=== PATIENT | male | born 1940 | race Caucasian/White ===

== ENCOUNTER 2016-03-17 10:12 | Inpatient (IN) | payer BC ==
[~2016-03-17] VITALS: Ht 175.3 cm; Wt 95.5 kg
[~2016-03-17 10:12] MED LIST: AML5T PO; ASP81EC PO; Atorvastatin Calcium PO; LIS20T PO; LISI-646 PO; METF500T PO
[2016-03-17 11:33] LABS: Basophils # (auto) 0.1 uL; DEFINITIVE VIEW TRANSMISSION; Eosinophils # (auto) 0.2 uL; Eosinophils % (auto) 3.8 % (0.0-7.0); Hematocrit 46.8 % (41.0-53.0); Hemoglobin 14.9 g/dL (13.5-17.5); Lymphocytes # (auto) 1.1 uL; Mean Corpuscular Hemoglobin 26.9 pg (28.0-32.0); Mean Corpuscular Hgb Conc. 31.7 g/dL (32.0-36.0); Mean Corpuscular Volume 84.7 fL (80.0-100.0); Mean Platelet Volume 8.8 fL (7.4-10.4); Monocytes # (auto) 0.7 uL; Monocytes % (auto) 10.3 % (0.0-12.0); Neutrophils # (auto) 4.3 uL; Neutrophils % (auto) 67.7 % (37.0-80.0); Platelet Count (auto) 216 10^3/uL (140-450); White Blood Cell 6.4 10^3/uL (4.4-10.8)
[2016-03-17 11:46] LABS: Basophils % (auto) 0.2 % (0.0-2.0)
[2016-03-17 11:59] LABS: Albumin 3.1 g/dL (3.4-5.0); Calcium 8.7 mg/dL (8.5-10.1); Potassium 4.5 mmol/L (3.5-5.1)
[2016-03-17 12:00] LABS: Partial Thromboplastin Time 31.1 sec (22.64-33.71)
[2016-03-17 12:02] LABS: BUN/Creatinine Ratio 24.4
[2016-03-17 12:04] LABS: Bilirubin, Total 1.1 mg/dL (0.2-1.0); Total Protein 6.8 g/dL (6.4-8.2)
[2016-03-17 12:19] LABS: INR 1.17 (0.9-1.15)
[2016-03-17] MEDS ORDERED: SODIUM CHLORIDE 0.9% 1,000 ML IV ONE (12:50)
[2016-03-17] MEDS ORDERED: PIPERACILLIN-TAZOB 3.375GM 100 ML IV ONE (13:00)
[2016-03-17] MEDS ORDERED: VANCOMYCIN 1GM/250ML D5W 250 ML IV ONE (15:15)
[2016-03-17] MEDS ORDERED: TEMAZEPAM 15 MG CAP PO PRN (15:30)
[2016-03-17] MEDS ORDERED: ACETAMINOPHEN 500 MG TAB PO PRN (15:30)
[2016-03-17] MEDS ORDERED: VANCOMYCIN PER PHARMACY 0 MG IV SCH (15:30)
[2016-03-17] MEDS ORDERED: HYDROcodone-ACET 5/325MG TAB PO PRN (15:30)
[2016-03-17] MEDS ORDERED: MORPHINE SULF INJ 2 MG/ML SYRINGE 1ML IV PRN (15:30)
[2016-03-17] MEDS ORDERED: LACTULOSE 20Gm/30ML SOLN PO PRN (15:30)
[2016-03-17] MEDS ORDERED: DEXTROSE (50%) 50ML SYRG IV PRN (15:30)
[2016-03-17] MEDS ORDERED: LABETALOL HCL 5 MG/ML 4ML SYRINGE IV ONE (15:30)
[2016-03-17] MEDS ORDERED: LORazepam 0.5 MG TAB PO PRN (15:30)
[2016-03-17] MEDS ORDERED: NITROGLYCERIN 0.4 MG SL TAB SL PRN (15:30)
[2016-03-17] MEDS ORDERED: PROMETHAZINE HCL 25 MG/ML 1ML IV PRN (15:30)
[2016-03-17] MEDS: SODIUM CHLORIDE 0.9% 1,000 ML IV SCH (17:50)
[2016-03-17] MEDS: ACCU-CHEK COMFORT CURVE STRIP VI SCH ×2 (17:50→22:31)
[2016-03-17 17:52] VITALS: BP 160/78
[2016-03-17] MEDS: InsuLIN REG 1unit/0.01ml Soln (100units/ml) SC SCH ×2 (18:12→22:32)
[2016-03-17] MEDS ORDERED: amLODIPine BESYLATE 5 MG TAB PO ONE (20:15)
[2016-03-17] MEDS ORDERED: LISINOPRIL 20 MG TAB PO ONE (20:15)
[2016-03-17] MEDS ORDERED: ASPirin-EC 81 mg tab PO ONE (20:15)
[2016-03-17 22:00] VITALS: BP 142/82
[2016-03-17] MEDS: ATORVASTATIN 20 MG TAB PO SCH (22:31)
[2016-03-18] MEDS: SODIUM CHLORIDE 0.9% 1,000 ML IV SCH ×3 (01:46→21:16)
[2016-03-18 05:30] VITALS: BP 163/94
[2016-03-18] MEDS: InsuLIN REG 1unit/0.01ml Soln (100units/ml) SC SCH ×4 (06:30→22:00)
[2016-03-18] MEDS: ACCU-CHEK COMFORT CURVE STRIP VI SCH ×4 (06:30→22:00)
[2016-03-18 06:51] LABS: Basophils # (auto) 0 uL; Basophils % (auto) 0.5 % (0.0-2.0); Eosinophils # (auto) 0.3 uL; Hematocrit 40.3 % (41.0-53.0); Hemoglobin 13.3 g/dL (13.5-17.5); Lymphocytes # (auto) 1.1 uL; Lymphocytes % (auto) 22.9 % (10.0-50.0); Mean Corpuscular Hemoglobin 30.3 pg (28.0-32.0); Mean Corpuscular Hgb Conc. 33.1 g/dL (32.0-36.0); Mean Corpuscular Volume 91.5 fL (80.0-100.0); Monocytes # (auto) 0.6 uL; Monocytes % (auto) 12.4 % (0.0-12.0); Neutrophils # (auto) 2.8 uL; Neutrophils % (auto) 58.2 % (37.0-80.0); Platelet Count (auto) 172 10^3/uL (140-450); White Blood Cell 4.8 10^3/uL (4.4-10.8)
[2016-03-18 07:12] LABS: Albumin 2.9 g/dL (3.4-5.0); BUN/Creatinine Ratio 28.7; Bilirubin, Total 1.1 mg/dL (0.2-1.0); Calcium 8.4 mg/dL (8.5-10.1); Potassium 4.1 mmol/L (3.5-5.1); Total Protein 6.3 g/dL (6.4-8.2)
[2016-03-18 09:25] VITALS: BP 158/86
[2016-03-18] MEDS: LEVOFLOXACIN 500MG 100 ML IV SCH (10:05)
[2016-03-18] MEDS: ENOXAPARIN SOD 40 MG/0.4 ML SYRINGE SC SCH (10:06)
[2016-03-18] MEDS: LISINOPRIL 20 MG TAB PO SCH (10:08)
[2016-03-18] MEDS: ASPirin-EC 81 mg tab PO SCH (10:08)
[2016-03-18] MEDS: amLODIPine BESYLATE 5 MG TAB PO SCH (10:10)
[2016-03-18 13:00] VITALS: BP 169/86
[2016-03-18] MEDS: VANCOMYCIN 1,250 MG in D5W 5% 250 ML IV SCH (13:00)
[2016-03-18 17:00] VITALS: BP 140/82
[2016-03-18 21:27] VITALS: BP 144/74
[2016-03-18] MEDS: ATORVASTATIN 20 MG TAB PO SCH (22:00)
[2016-03-19] MEDS: VANCOMYCIN 1,250 MG in D5W 5% 250 ML IV SCH ×2 (04:16→23:50)
[2016-03-19 05:00] VITALS: BP 166/98
[2016-03-19] MEDS: ACCU-CHEK COMFORT CURVE STRIP VI SCH ×4 (05:57→22:00)
[2016-03-19] MEDS: SODIUM CHLORIDE 0.9% 1,000 ML IV SCH (05:57)
[2016-03-19] MEDS: InsuLIN REG 1unit/0.01ml Soln (100units/ml) SC SCH ×4 (06:01→22:00)
[2016-03-19 09:00] VITALS: BP 170/90
[2016-03-19] MEDS: ASPirin-EC 81 mg tab PO SCH (09:33)
[2016-03-19] MEDS: amLODIPine BESYLATE 5 MG TAB PO SCH (09:34)
[2016-03-19] MEDS: ENOXAPARIN SOD 40 MG/0.4 ML SYRINGE SC SCH (09:34)
[2016-03-19] MEDS: LISINOPRIL 20 MG TAB PO SCH (09:34)
[2016-03-19] MEDS: LEVOFLOXACIN 500MG 100 ML IV SCH (09:35)
[2016-03-19] MEDS ORDERED: FUROSEMIDE 40 MG/4 ML VIAL IV ONE (12:45)
[2016-03-19 13:00] VITALS: BP 154/79
[2016-03-19 16:42] VITALS: BP 187/85
[2016-03-19 22:02] VITALS: BP 115/75
[2016-03-19 22:13] VITALS: BP 135/76
[2016-03-19] MEDS: ATORVASTATIN 20 MG TAB PO SCH (22:48)
[2016-03-20 05:28] LABS: Basophils # (auto) 0 uL; Basophils % (auto) 0.7 % (0.0-2.0); Eosinophils # (auto) 0.3 uL; Eosinophils % (auto) 6.3 % (0.0-7.0); Hematocrit 42.8 % (41.0-53.0); Hemoglobin 13.6 g/dL (13.5-17.5); Lymphocytes % (auto) 19.8 % (10.0-50.0); Mean Corpuscular Hemoglobin 27.1 pg (28.0-32.0); Mean Corpuscular Hgb Conc. 31.9 g/dL (32.0-36.0); Mean Corpuscular Volume 85.2 fL (80.0-100.0); Mean Platelet Volume 8.7 fL (7.4-10.4); Monocytes # (auto) 0.5 uL; Monocytes % (auto) 9.8 % (0.0-12.0); Neutrophils # (auto) 3.2 uL; Neutrophils % (auto) 63.4 % (37.0-80.0); Platelet Count (auto) 179 10^3/uL (140-450); Red Cell Distribution Width 15.2 % (11.6-16.0); White Blood Cell 5.1 10^3/uL (4.4-10.8)
[2016-03-20 05:42] VITALS: BP 178/97
[2016-03-20 05:53] LABS: BUN/Creatinine Ratio 20.7; Calcium 8.6 mg/dL (8.5-10.1)
[2016-03-20] MEDS: ACCU-CHEK COMFORT CURVE STRIP VI SCH ×4 (06:31→22:26)
[2016-03-20] MEDS: InsuLIN REG 1unit/0.01ml Soln (100units/ml) SC SCH ×4 (07:00→22:28)
[2016-03-20 09:00] VITALS: BP_SYST 128; BP_SYST 174; BP_DIAS 79; BP_DIAS 81
[2016-03-20] MEDS: amLODIPine BESYLATE 5 MG TAB PO SCH (09:19)
[2016-03-20] MEDS: ENOXAPARIN SOD 40 MG/0.4 ML SYRINGE SC SCH (09:19)
[2016-03-20] MEDS: ASPirin-EC 81 mg tab PO SCH (09:19)
[2016-03-20] MEDS: LEVOFLOXACIN 500MG 100 ML IV SCH (09:20)
[2016-03-20] MEDS: LISINOPRIL 20 MG TAB PO SCH (09:20)
[2016-03-20] MEDS: MORPHINE SULF INJ 2 MG/ML SYRINGE 1ML IV PRN (10:35)
[2016-03-20 13:00] VITALS: BP 145/71
[2016-03-20] MEDS ORDERED: FUROSEMIDE 40 MG/4 ML VIAL IV ONE (14:00)
[2016-03-20] MEDS ORDERED: CARVEDILOL 3.125 MG TAB PO ONE (14:00)
[2016-03-20 15:16] LABS: Urine Bilirubin Negative (Negative); Urine Blood Negative /uL (Negative); Urine Color Yellow (Yellow); Urine Glucose TRACE mg/dL (Normal); Urine Hyaline Cast FEW /lpf (0 - 2); Urine Ketone Negative (Negative); Urine Nitrite Negative (Negative); Urine RBC 2 /hpf (0 - 3); Urine Squamous Epithelial Cell FEW /hpf (<5); Urine Urobilinogen Normal (Negative)
[2016-03-20] MEDS: VANCOMYCIN 1,250 MG in D5W 5% 250 ML IV SCH (15:46)
[2016-03-20 17:00] VITALS: BP 149/99
[2016-03-20 22:00] VITALS: BP 136/80
[2016-03-20] MEDS: ATORVASTATIN 20 MG TAB PO SCH (22:22)
[2016-03-20] MEDS: CARVEDILOL 3.125 MG TAB PO SCH (22:22)
[2016-03-21 05:30] VITALS: BP 163/84
[2016-03-21 06:13] LABS: BUN/Creatinine Ratio 19.4; Calcium 8.6 mg/dL (8.5-10.1); Potassium 4.2 mmol/L (3.5-5.1)
[2016-03-21] MEDS: ACCU-CHEK COMFORT CURVE STRIP VI SCH ×4 (07:09→22:27)
[2016-03-21] MEDS: InsuLIN REG 1unit/0.01ml Soln (100units/ml) SC SCH ×3 (07:13→16:48)
[2016-03-21 09:00] VITALS: BP 167/83
[2016-03-21] MEDS: FUROSEMIDE 40 MG/4 ML VIAL IV SCH (09:45)
[2016-03-21] MEDS: LISINOPRIL 20 MG TAB PO SCH (09:46)
[2016-03-21] MEDS: ASPirin-EC 81 mg tab PO SCH (09:46)
[2016-03-21] MEDS: CARVEDILOL 3.125 MG TAB PO SCH ×2 (09:46→22:12)
[2016-03-21] MEDS: ENOXAPARIN SOD 40 MG/0.4 ML SYRINGE SC SCH (09:46)
[2016-03-21] MEDS: LEVOFLOXACIN 500MG 100 ML IV SCH (09:46)
[2016-03-21] MEDS: MORPHINE SULF INJ 2 MG/ML SYRINGE 1ML IV PRN (09:47)
[2016-03-21] MEDS: VANCOMYCIN 1,250 MG in D5W 5% 250 ML IV SCH (10:59)
[2016-03-21] MEDS ORDERED: DEXTROSE (50%) 50ML SYRG IV PRN (12:00)
[2016-03-21 13:00] VITALS: BP 148/93
[2016-03-21 17:00] VITALS: BP 109/54
[2016-03-21] MEDS ORDERED: InsuLIN REG 1unit/0.01ml Soln (100units/ml) SC SCH (22:00)
[2016-03-21] MEDS: ATORVASTATIN 20 MG TAB PO SCH (22:11)
[2016-03-21 22:32] VITALS: BP 150/75
[2016-03-22] MEDS: VANCOMYCIN 1,250 MG in D5W 5% 250 ML IV SCH (04:03)
[2016-03-22 05:12] VITALS: BP 157/76
[2016-03-22 06:06] LABS: Basophils # (auto) 0 uL; Basophils % (auto) 0.6 % (0.0-2.0); Eosinophils # (auto) 0.3 uL; Eosinophils % (auto) 6.8 % (0.0-7.0); Hematocrit 38.8 % (41.0-53.0); Hemoglobin 12.6 g/dL (13.5-17.5); Lymphocytes # (auto) 0.8 uL; Lymphocytes % (auto) 18.1 % (10.0-50.0); Mean Corpuscular Hemoglobin 28.9 pg (28.0-32.0); Mean Corpuscular Hgb Conc. 32.4 g/dL (32.0-36.0); Mean Corpuscular Volume 89.3 fL (80.0-100.0); Mean Platelet Volume 8.8 fL (7.4-10.4); Monocytes # (auto) 0.5 uL; Monocytes % (auto) 10.6 % (0.0-12.0); Neutrophils # (auto) 2.8 uL; Neutrophils % (auto) 63.9 % (37.0-80.0); Platelet Count (auto) 170 10^3/uL (140-450); Red Cell Distribution Width 14.9 % (11.6-16.0); White Blood Cell 4.5 10^3/uL (4.4-10.8)
[2016-03-22 06:15] LABS: BUN/Creatinine Ratio 20.5; Calcium 8.5 mg/dL (8.5-10.1); Potassium 4.2 mmol/L (3.5-5.1)
[2016-03-22] MEDS: ACCU-CHEK COMFORT CURVE STRIP VI SCH ×2 (06:28→11:03)
[2016-03-22] MEDS: InsuLIN REG 1unit/0.01ml Soln (100units/ml) SC SCH ×2 (06:28→11:03)
[2016-03-22] MEDS: LEVOFLOXACIN 500MG 100 ML IV SCH (09:06)
[2016-03-22] MEDS: ASPirin-EC 81 mg tab PO SCH (09:07)
[2016-03-22] MEDS: LISINOPRIL 20 MG TAB PO SCH (09:07)
[2016-03-22] MEDS: CARVEDILOL 3.125 MG TAB PO SCH (09:07)
[2016-03-22] MEDS: FUROSEMIDE 40 MG/4 ML VIAL IV SCH (09:07)
[2016-03-22] MEDS: ENOXAPARIN SOD 40 MG/0.4 ML SYRINGE SC SCH (09:08)
[2016-03-22 13:45] VITALS: BP 113/77
== END 2016-03-22 13:45 | disposition home or self-care (01) | DRG 292 ==
LOC: ER 10:26 → TELE 10:27 → TELE-E-ADS 16:46 → TELE-WESTW 17:35 → WEST WING 03-18 15:40
PROVIDERS: ADMIT Internal Medicine; ATTEND Family Medicine
DX: I11.0 Hypertensive heart disease with heart failure (principal); L03.115 Cellulitis of right lower limb; E44.1 Mild protein-calorie malnutrition; L03.116 Cellulitis of left lower limb; I50.21 Acute systolic (congestive) heart failure; M71.22 Synovial cyst of popliteal space [Baker], left knee; E78.5 Hyperlipidemia, unspecified; E11.42 Type 2 diabetes mellitus with diabetic polyneuropathy; E66.9 Obesity, unspecified; Z68.31 Body mass index [BMI] 31.0-31.9, adult; Z83.3 Family history of diabetes mellitus; Z82.49 Family history of ischemic heart disease and other diseases of the circulatory system; Z88.0 Allergy status to penicillin; Z79.84 Long term (current) use of oral hypoglycemic drugs; Z79.82 Long term (current) use of aspirin; E11.51 Type 2 diabetes mellitus with diabetic peripheral angiopathy without gangrene; E11.622 Type 2 diabetes mellitus with other skin ulcer; I35.0 Nonrheumatic aortic (valve) stenosis; L98.499 Non-pressure chronic ulcer of skin of other sites with unspecified severity; Z85.048 Personal history of other malignant neoplasm of rectum, rectosigmoid junction, and anus; Z93.3 Colostomy status; Z80.9 Family history of malignant neoplasm, unspecified; Z89.421 Acquired absence of other right toe(s)
CPT/HCPCS: 36415; 71020; 80048; 80053; 80061; 80202; 81001; 82962; 83036; 83735; 84443; 85025; 85049; 85610; 85652; 85730; 87040; 87205; 93005; 93306; 93970; 94761; 96361; 96365; 96375; J1815; J1956; J2543; J3490; J7060

== ENCOUNTER 2016-12-02 11:02 | Inpatient (IN) | payer BC ==
[~2016-12-02] VITALS: Ht 175.3 cm; Wt 81.6 kg
[2016-12-02 11:43] LABS: Hematocrit 35.9 % (41.0-53.0); Hemoglobin 12.3 g/dL (13.5-17.5); Mean Corpuscular Hemoglobin 29.8 pg (28.0-32.0); Mean Corpuscular Hgb Conc. 34.2 g/dL (32.0-36.0); Mean Platelet Volume 8.2 fL (6.9-10.8); Platelet Count (auto) 234 10^3/uL (140-450); Red Cell Distribution Width 14.7 % (11.8-14.3); White Blood Cell 12.5 10^3/uL (4.4-10.8)
[2016-12-02 11:45] LABS: Metamyelocytes % 0; Myelocytes % 0; Promyelocytes % 0; Reactive Lymphocytes 0
[2016-12-02] MEDS ORDERED: SODIUM CHLORIDE 0.9% 1,000 ML IV ONE ×4 (12:06→15:30)
[2016-12-02 12:10] LABS: Albumin 2.7 g/dL (3.4-5.0); BUN/Creatinine Ratio 33.5; Bilirubin, Total 0.9 mg/dL (0.2-1.0); Calcium 8.7 mg/dL (8.5-10.1); Potassium 4.1 mmol/L (3.5-5.1); Total Protein 7.4 g/dL (6.4-8.2)
[2016-12-02] MEDS ORDERED: CLINDAMYCIN 900MG IV 50 ML IV ONE (12:15)
[2016-12-02] MEDS ORDERED: cefTRIAXone 1GM/50ML D5W 50 ML IV ONE ×2 (12:15→14:45)
[2016-12-02 12:33] LABS: INR 1.1 (0.9-1.15); Partial Thromboplastin Time 27.4 sec (22.64-33.71)
[2016-12-02] MEDS ORDERED: HEPARIN SODIUM (PORCINE) 5000 UNITS/ML 1ML VIAL IV ONE (13:15)
[2016-12-02 13:16] LABS: Ovalocytes FEW; Platelet Estimate Adequate
[2016-12-02 13:44] LABS: Lactic Acid w/Reflex 3.7 mmol/L (0.4-2.0)
[2016-12-02 13:45] LABS: REFLEX LACTIC ACID YES OR NO YES
[2016-12-02] MEDS ORDERED: HEPARIN DRIP/D5W 100UNITS/ML 250 ML IV SCH ×3 (14:19→15:45)
[2016-12-02] MEDS ORDERED: SODIUM CHLORIDE 0.9% 1,000 ML IV SCH ×3 (14:19→20:15)
[2016-12-02] MEDS ORDERED: TEMAZEPAM 15 MG CAP PO PRN (14:30)
[2016-12-02] MEDS ORDERED: PROMETHAZINE HCL 25 MG/ML 1ML IV PRN (14:30)
[2016-12-02] MEDS ORDERED: LACTULOSE 20Gm/30ML SOLN PO PRN (14:30)
[2016-12-02] MEDS ORDERED: HYDROcodone-ACET 5/325MG TAB PO PRN (14:30)
[2016-12-02] MEDS ORDERED: DEXTROSE (50%) 50ML SYRG IV PRN (14:30)
[2016-12-02] MEDS ORDERED: NITROGLYCERIN 0.4 MG SL TAB SL PRN (14:30)
[2016-12-02] MEDS ORDERED: MORPHINE SULF INJ 2 MG/ML SYRINGE 1ML IV PRN ×2 (14:30)
[2016-12-02] MEDS ORDERED: ACETAMINOPHEN 500 MG TAB PO PRN (14:30)
[2016-12-02] MEDS ORDERED: ASPirin 81 mg TAB PO ONE ×2 (14:30→14:45)
[2016-12-02] MEDS ORDERED: LORazepam 0.5 MG TAB PO PRN (14:30)
[2016-12-02] MEDS ORDERED: PANTOPRAZOLE 40 MG TAB PO ONE (14:45)
[2016-12-02] MEDS ORDERED: NITROGLYCERIN 0.2MG/HR TOPICAL PATCH TD ONE (14:45)
[2016-12-02] MEDS ORDERED: CLINDAMYCIN 600MG IV 50 ML IV ONE (14:45)
[2016-12-02] MEDS ORDERED: InsuLIN REG 1unit/0.01ml Soln (100units/ml) SC SCH (16:00)
[2016-12-02] MEDS ORDERED: ACCU-CHEK COMFORT CURVE STRIP VI SCH (16:00)
[2016-12-02 16:28] LABS: Urine Bilirubin Negative (Negative); Urine Blood Negative /uL (Negative); Urine Color Yellow (Yellow); Urine Glucose Normal (Normal); Urine Hyaline Cast FEW /lpf (0 - 2); Urine Ketone Negative (Negative); Urine Mucus FEW (None Seen); Urine Nitrite Negative (Negative); Urine RBC 1 /hpf (0 - 3); Urine Urobilinogen Normal (Negative)
[2016-12-02 17:38] LABS: INR 1.16 (0.9-1.15); Partial Thromboplastin Time 38.2 sec (22.64-33.71); Prothrombin Time 12.7 sec (9.37-12.3)
[2016-12-02 17:56] VITALS: BP 127/56
[2016-12-02] MEDS ORDERED: CLINDAMYCIN 600MG IV 50 ML IV SCH (22:00)
[2016-12-03] MEDS ORDERED: cefTRIAXone 1GM/50ML D5W 50 ML IV SCH (09:00)
[2016-12-03] MEDS ORDERED: NITROGLYCERIN 0.2MG/HR TOPICAL PATCH TD SCH (10:00)
[2016-12-03] MEDS ORDERED: ASPirin 81 mg TAB PO SCH (10:00)
[2016-12-03] MEDS ORDERED: PANTOPRAZOLE 40 MG TAB PO SCH (10:00)
== END 2016-12-02 18:24 | disposition short-term general hospital (02) | DRG 871 ==
LOC: ER 11:02 → TELE 11:03
PROVIDERS: ADMIT Internal Medicine; ATTEND Internal Medicine
DX: A41.9 Sepsis, unspecified organism (principal); I21.4 Non-ST elevation (NSTEMI) myocardial infarction; E11.40 Type 2 diabetes mellitus with diabetic neuropathy, unspecified; I42.0 Dilated cardiomyopathy; E11.52 Type 2 diabetes mellitus with diabetic peripheral angiopathy with gangrene; L03.116 Cellulitis of left lower limb; I11.0 Hypertensive heart disease with heart failure; I50.82 Biventricular heart failure; E11.319 Type 2 diabetes mellitus with unspecified diabetic retinopathy without macular edema; E78.5 Hyperlipidemia, unspecified; H54.8 Legal blindness, as defined in USA; M19.90 Unspecified osteoarthritis, unspecified site; I35.0 Nonrheumatic aortic (valve) stenosis; E66.9 Obesity, unspecified; I25.10 Atherosclerotic heart disease of native coronary artery without angina pectoris; M71.22 Synovial cyst of popliteal space [Baker], left knee; Z68.26 Body mass index [BMI] 26.0-26.9, adult; Z83.3 Family history of diabetes mellitus; Z82.49 Family history of ischemic heart disease and other diseases of the circulatory system; Z85.048 Personal history of other malignant neoplasm of rectum, rectosigmoid junction, and anus; Z93.3 Colostomy status; Z88.0 Allergy status to penicillin
CPT/HCPCS: 36415; 71010; 73700; 80053; 81001; 82550; 82962; 83036; 83605; 84484; 85007; 85027; 85610; 85652; 85730; 87040; 93926; 96365; 96367; 96375; J0696; J1815; J3490